=== PATIENT | female | born 1970 | race Caucasian/White ===

== ENCOUNTER → 2017-10-27 | Outpatient (CLI) | payer OTHER | LOC: HYPER 06:51 | DX: L89.893 Pressure ulcer of other site, stage 3 (principal); I69.30 Unspecified sequelae of cerebral infarction; E78.00 Pure hypercholesterolemia, unspecified; E78.5 Hyperlipidemia, unspecified; M81.0 Age-related osteoporosis without current pathological fracture; J45.909 Unspecified asthma, uncomplicated; F32.9 Major depressive disorder, single episode, unspecified; Z87.01 Personal history of pneumonia (recurrent) ==

== ENCOUNTER → 2017-11-10 | Outpatient (CLI) | payer OTHER | LOC: HYPER 07:15 | DX: L89.893 Pressure ulcer of other site, stage 3 (principal); E78.00 Pure hypercholesterolemia, unspecified; E78.5 Hyperlipidemia, unspecified; M81.0 Age-related osteoporosis without current pathological fracture; J45.909 Unspecified asthma, uncomplicated; F32.9 Major depressive disorder, single episode, unspecified; Z87.01 Personal history of pneumonia (recurrent); Z86.73 Personal history of transient ischemic attack (TIA), and cerebral infarction without residual deficits ==

== ENCOUNTER → 2017-11-24 | Outpatient (CLI) | payer OTHER | LOC: HYPER 06:56 | DX: L89.893 Pressure ulcer of other site, stage 3 (principal); I69.30 Unspecified sequelae of cerebral infarction; E78.00 Pure hypercholesterolemia, unspecified; E78.5 Hyperlipidemia, unspecified; M81.0 Age-related osteoporosis without current pathological fracture; J45.909 Unspecified asthma, uncomplicated; F32.9 Major depressive disorder, single episode, unspecified; Z87.01 Personal history of pneumonia (recurrent) ==

== ENCOUNTER → 2019-12-27 | Outpatient (CLI) | payer OTHER | LOC: HYPER 08:08 | PROVIDERS: ATTEND Emergency Medicine Emergency Medical Services | DX: L89.892 Pressure ulcer of other site, stage 2 (principal); L84 Corns and callosities; I63.50 Cerebral infarction due to unspecified occlusion or stenosis of unspecified cerebral artery; E78.00 Pure hypercholesterolemia, unspecified; E78.5 Hyperlipidemia, unspecified; N95.1 Menopausal and female climacteric states; M85.80 Other specified disorders of bone density and structure, unspecified site; R00.2 Palpitations; K50.90 Crohn's disease, unspecified, without complications; J30.9 Allergic rhinitis, unspecified; J45.20 Mild intermittent asthma, uncomplicated; M81.0 Age-related osteoporosis without current pathological fracture; F32.9 Major depressive disorder, single episode, unspecified ==

== ENCOUNTER → 2020-01-10 | Outpatient (CLI) | payer OTHER | LOC: HYPER 08:10 | PROVIDERS: ATTEND Emergency Medicine Emergency Medical Services | DX: L89.892 Pressure ulcer of other site, stage 2 (principal); L84 Corns and callosities; I63.50 Cerebral infarction due to unspecified occlusion or stenosis of unspecified cerebral artery; E78.5 Hyperlipidemia, unspecified; K51.20 Ulcerative (chronic) proctitis without complications; N95.1 Menopausal and female climacteric states; M85.80 Other specified disorders of bone density and structure, unspecified site; R00.2 Palpitations; J30.9 Allergic rhinitis, unspecified; M81.0 Age-related osteoporosis without current pathological fracture; E78.00 Pure hypercholesterolemia, unspecified; J45.20 Mild intermittent asthma, uncomplicated; F32.9 Major depressive disorder, single episode, unspecified ==